=== PATIENT | female | born 1950 | race Caucasian/White ===

== ENCOUNTER 2019-02-09 05:33 | Inpatient (IN) | payer MEDICARE, BC ==
[2019-02-09] MEDS: LACTATED RINGER'S 1,000 ML IV (06:27)
[2019-02-09] MEDS ORDERED: GELATIN SIZE 100 SPONGE (06:58)
[2019-02-09] MEDS ORDERED: AL HYDROX/MG HYDROX/SIMETH 30 ML CUP PO (07:00)
[2019-02-09] MEDS: CEFAZOLIN 2 GM/50 ML (PMX) 50 ML IVPB (07:00)
[2019-02-09] MEDS ORDERED: NALOXONE (0.4 MG/ML) INJ IV (07:00)
[2019-02-09] MEDS ORDERED: DIPHENHYDRAMINE 25 MG CAP PO (07:00)
[2019-02-09] MEDS ORDERED: HYDROCODONE/APAP (10/325) TAB PO ×2 (07:00)
[2019-02-09] MEDS ORDERED: DESFLURANE 15 MIN (07:00)
[2019-02-09] MEDS ORDERED: CEPASTAT LOZENGE MT (07:00)
[2019-02-09] MEDS ORDERED: HYDROmorphONE 0.5 MG/0.5 ML SYG IV (07:00)
[2019-02-09] MEDS: CEFAZOLIN 1 GM/50 ML (PMX) 50 ML IVPB ×2 (07:00→19:53)
[2019-02-09] MEDS ORDERED: DIPHENHYDRAMINE 50 MG INJ IV ×2 (07:00→11:30)
[2019-02-09] MEDS ORDERED: BISACODYL 10 MG SUPP PR (07:00)
[2019-02-09] MEDS ORDERED: SCOPOLAMINE 1.5 MG PATCH (07:02)
[2019-02-09] MEDS ORDERED: MIDAZOLAM 1 MG/ML 2 ML INJ (07:02)
[2019-02-09] MEDS ORDERED: SUCCINYLCHOLINE CHLORIDE 100 MG/5 ML SYG IV (07:07)
[2019-02-09] MEDS ORDERED: ROCURONIUM 50 MG INJ (07:07)
[2019-02-09] MEDS ORDERED: PROPOFOL 20 ML (07:07)
[2019-02-09] MEDS ORDERED: LIDOCAINE 1% (MDV) 20 ML INJ (07:08)
[2019-02-09] MEDS ORDERED: HEPARIN 1000 UNITS/ML 10 ML INJ (07:08)
[2019-02-09] MEDS ORDERED: CEFAZOLIN 1 GM INJ (07:29)
[2019-02-09] MEDS ORDERED: ONDANSETRON 4 MG INJ ×2 (07:31→11:48)
[2019-02-09] MEDS ORDERED: FAMOTIDINE 20 MG INJ (07:31)
[2019-02-09] MEDS ORDERED: DEXAMETHASONE 4 MG/ML 5 ML INJ (07:31)
[2019-02-09] MEDS ORDERED: PHENYLephrine (100 MCG/ML) 10ML SYG (07:55)
[2019-02-09] MEDS ORDERED: EPHEDrine 25 MG/5 ML SYG (07:55)
[2019-02-09] MEDS: DOCUSATE SODIUM 100 MG CAP PO ×2 (09:00→20:11)
[2019-02-09] MEDS ORDERED: hydrALAzine 20 MG INJ IV (11:30)
[2019-02-09] MEDS ORDERED: LABETALOL HCL 20MG INJ IV (11:30)
[2019-02-09] MEDS ORDERED: HYDROmorphONE 1 MG/5 ML IV SYRINGE IV (11:30)
[2019-02-09] MEDS: CEFAZOLIN 1 GM INJ (12:12)
[2019-02-09] MEDS: BUPIVACAINE 0.5%/EPI (SDV) 30 ML INJ (12:12)
[2019-02-09] MEDS: HEPARIN 1000 UNITS/ML 10 ML INJ (12:12)
[2019-02-09] MEDS: THROMBIN 5000 UNIT VIAL (12:12)
[2019-02-09] MEDS: CA CHLORIDE 10% 10 ML SYRINGE (12:12)
[2019-02-09] MEDS ORDERED: BACITRACIN 0.9 GM OINT (12:20)
[2019-02-09] MEDS: ONDANSETRON 4 MG INJ IV ×2 (12:32→18:15)
[2019-02-09] MEDS: MEPERIDINE 25 MG INJ IV (12:32)
[2019-02-09] MEDS: HYDROmorphONE 1 MG/5 ML IV SYRINGE IV ×2 (12:39→14:08)
[2019-02-09] MEDS: HYDROmorphONE 0.2 MG/ML PCA IV (12:56)
[2019-02-09] MEDS: D5W-0.45 NACL + KCL 20 MEQ 1,000 ML IV ×2 (15:42→16:53)
[2019-02-09] MEDS: METOCLOPRAMIDE 10 MG INJ IV (19:50)
[2019-02-09] MEDS: LORAZEPAM 2 MG INJ IV (20:36)
[2019-02-09] MEDS: ZOLPIDEM 5 MG TAB PO (22:41)
[2019-02-10] MEDS: D5W-0.45 NACL + KCL 20 MEQ 1,000 ML IV ×2 (01:20→12:53)
[2019-02-10] MEDS: CEFAZOLIN 1 GM/50 ML (PMX) 50 ML IVPB ×2 (03:52→11:23)
[2019-02-10 05:30] LABS: ADD MAN DIFF? NO
[2019-02-10 05:37] LABS: WHITE BLOOD COUNT 9.8 10^3/ul (4.8-10.8)
[2019-02-10 05:37] LABS: BASOPHILS % 0.2 % (0.0-2.0); EOSINOPHILS # 0.1 10^3/ul (0.0-0.5); EOSINOPHILS % 0.5 % (0.0-7.0); HEMATOCRIT 32.6 % (37.0-47.0); HEMOGLOBIN 10.7 g/dl (12.0-16.0); LYMPHOCYTES # 1.4 10^3/ul (0.8-2.9); LYMPHOCYTES % 13.9 % (15.0-51.0); MEAN CORPUSCULAR HEMOGLOBIN 28.9 pg (29.0-33.0); MEAN CORPUSCULAR HGB CONC 32.8 g/dl (32.0-37.0); MEAN CORPUSCULAR VOLUME 88.1 fl (82.0-101.0); MEAN PLATELET VOLUME 10.1 fl (7.4-10.4); MONOCYTE # 0.9 10^3/ul (0.3-0.9); MONOCYTES % 8.7 % (0.0-11.0); NEUTROPHIL # 7.4 10^3/ul (1.6-7.5); NEUTROPHILS % 76.2 % (39.0-77.0); PLATELET COUNT 229 10^3/UL (140-415); RED CELL DISTRIBUTION WIDTH 12.2 % (11.5-14.5)
[2019-02-10 06:11] LABS: ANION GAP 6 (5-13); BLOOD UREA NITROGEN 11 mg/dl (7-20); CALCIUM 8.5 mg/dl (8.4-10.2); CARBON DIOXIDE 27 mmol/L (21-31); CHLORIDE 107 mmol/L (97-110); CREATININE 0.65 mg/dl (0.44-1.00); Estimated GFR > 60 mL/min (>60); GLUCOSE 122 mg/dl (70-220); MAGNESIUM 2.1 mg/dl (1.7-2.5); POTASSIUM 3.9 mmol/L (3.5-5.1); SODIUM 140 mmol/L (135-144)
[2019-02-10] MEDS: ALPRAZOLAM 0.25 MG TAB PO (08:26)
[2019-02-10] MEDS: DOCUSATE SODIUM 100 MG CAP PO ×2 (08:26→21:23)
[2019-02-10] MEDS ORDERED: HYDROCODONE/APAP (10/325) TAB PO (08:30)
[2019-02-10] MEDS: HYDROCODONE/APAP (10/325) TAB PO (09:10)
[2019-02-10] MEDS: BACITRACIN 0.9 GM OINT TOP ×2 (15:00→21:23)
[2019-02-10] MEDS: CYCLOBENZAPRINE 10 MG TAB PO (15:02)
[2019-02-10] MEDS: ZOLPIDEM 5 MG TAB PO (21:28)
[2019-02-11 05:49] LABS: ADD MAN DIFF? NO
[2019-02-11 06:04] LABS: BASOPHILS % 0.3 % (0.0-2.0); EOSINOPHILS % 0.2 % (0.0-7.0); HEMATOCRIT 34.8 % (37.0-47.0); HEMOGLOBIN 11.4 g/dl (12.0-16.0); LYMPHOCYTES # 2.3 10^3/ul (0.8-2.9); LYMPHOCYTES % 17.2 % (15.0-51.0); MEAN CORPUSCULAR HEMOGLOBIN 28.6 pg (29.0-33.0); MEAN CORPUSCULAR HGB CONC 32.8 g/dl (32.0-37.0); MEAN CORPUSCULAR VOLUME 87.2 fl (82.0-101.0); MEAN PLATELET VOLUME 10.4 fl (7.4-10.4); MONOCYTES % 7.8 % (0.0-11.0); NEUTROPHIL # 9.7 10^3/ul (1.6-7.5); PLATELET COUNT 270 10^3/UL (140-415); RED BLOOD COUNT 3.99 10^6/ul (4.20-5.40); RED CELL DISTRIBUTION WIDTH 12.4 % (11.5-14.5)
[2019-02-11 06:04] LABS: WHITE BLOOD COUNT 13.1 10^3/ul (4.8-10.8)
[2019-02-11] MEDS: METOCLOPRAMIDE 10 MG INJ IV (06:06)
[2019-02-11 06:26] LABS: ANION GAP 7 (5-13); BLOOD UREA NITROGEN 13 mg/dl (7-20); CALCIUM 8.7 mg/dl (8.4-10.2); CARBON DIOXIDE 27 mmol/L (21-31); CHLORIDE 104 mmol/L (97-110); CREATININE 0.75 mg/dl (0.44-1.00); Estimated GFR > 60 mL/min (>60); GLUCOSE 131 mg/dl (70-220); MAGNESIUM 2.4 mg/dl (1.7-2.5); POTASSIUM 4.2 mmol/L (3.5-5.1); SODIUM 138 mmol/L (135-144)
[2019-02-11] MEDS: ACETAMINOPHEN 325 MG TAB PO (07:27)
[2019-02-11] MEDS: BACITRACIN 0.9 GM OINT TOP (09:00)
[2019-02-11] MEDS: DOCUSATE SODIUM 100 MG CAP PO (09:10)
[2019-02-11] MEDS ORDERED: HYDROCODONE/APAP (10/325) TAB PO ×2 (09:30)
[2019-02-11 10:56] LABS: ADD UMIC YES; UR ASCORBIC ACID NEGATIVE (NEGATIVE); UR BILIRUBIN (Dip) NEGATIVE (NEGATIVE); UR BLOOD (Dip) 3+ mg/dL (NEGATIVE); UR CLARITY CLEAR (CLEAR); UR COLOR YELLOW (YELLOW); UR GLUCOSE (Dip) NEGATIVE (NEGATIVE); UR KETONES (Dip) NEGATIVE (NEGATIVE); UR LEUKOCYTE ESTERASE (Dip) 1+ Leu/ul (NEGATIVE); UR MUCUS FEW /HPF (NONE SEEN); UR NITRITE (Dip) NEGATIVE (NEGATIVE); UR RBC 32 /HPF (0-5); UR SPECIFIC GRAVITY (Dip) 1.013 (1.003-1.030); UR SQUAMOUS EPITHELIAL CELL FEW /HPF (FEW); UR TOTAL PROTEIN (Dip) NEGATIVE (NEGATIVE); UR UROBILINOGEN (Dip) NEGATIVE (NEGATIVE); UR WBC 10 /HPF (0-5)
== END 2019-02-11 10:25 | disposition home or self-care (01) | DRG 455 ==
LOC: REC 05:33 → MS1 14:02
PROC: 0SG00AJ Fusion of Lumbar Vertebral Joint with Interbody Fusion Device, Posterior Approach, Anterior Column, Open Approach (ICD-10-PCS; principal; 2019-02-09 07:00)
PROC: 0SG0071 Fusion of Lumbar Vertebral Joint with Autologous Tissue Substitute, Posterior Approach, Posterior Column, Open Approach (ICD-10-PCS; 2019-02-09 07:00)
PROC: 0ST20ZZ Resection of Lumbar Vertebral Disc, Open Approach (ICD-10-PCS; 2019-02-09 07:00)
PROC: 01NB0ZZ Release Lumbar Nerve, Open Approach (ICD-10-PCS; 2019-02-09 07:00)
PROC: 4A11X4G Monitoring of Peripheral Nervous Electrical Activity, Intraoperative, External Approach (ICD-10-PCS; 2019-02-09 07:00)
PROC: 0HB6XZZ Excision of Back Skin, External Approach (ICD-10-PCS; 2019-02-09 07:00)
DX: M43.16 Spondylolisthesis, lumbar region (principal); M48.062 Spinal stenosis, lumbar region with neurogenic claudication; M53.2X6 Spinal instabilities, lumbar region; M54.16 Radiculopathy, lumbar region; L98.9 Disorder of the skin and subcutaneous tissue, unspecified; R03.0 Elevated blood-pressure reading, without diagnosis of hypertension; G89.18 Other acute postprocedural pain
CPT/HCPCS: 71045; 72110; 72131; 80048; 81001; 83735; 85025; 86999; 87086; 88304; 88305; 97116; 97162; 97530